=== PATIENT | female | born 1990 | race Asian ===

== ENCOUNTER 2017-12-26 07:39 | Emergency (ER) | payer OTHER ==
[~2017-12-26] VITALS: Ht 152.4 cm; Wt 49.9 kg
[2017-12-26 07:50] VITALS: BP 125/78
[2017-12-26] MEDS ORDERED: IBUPROFEN 600 MG TAB PO ONE (09:00)
[2017-12-26] MEDS ORDERED: METHOCARBAMOL 500 MG TAB PO ONE (09:00)
== END 2017-12-26 09:22 | disposition home or self-care (01) ==
LOC: EDBD 07:39 → ER 07:39
DX: Z04.1 Encounter for examination and observation following transport accident (principal); V49.9XXA Car occupant (driver) (passenger) injured in unspecified traffic accident, initial encounter; Y93.89 Activity, other specified; Y92.89 Other specified places as the place of occurrence of the external cause; Y99.8 Other external cause status